=== PATIENT | female | born 1955 | race Caucasian/White ===

== ENCOUNTER 2016-12-24 07:05 | Emergency (ER) | payer MEDICARE ==
[2016-12-24 07:26] VITALS: BP 123/72
--- NOTE | 2016-12-24 07:58 | UC ---
Tena Jenkins Michael, scribed for Karla Schuler MD on 12/24/16 at 0728 . Headache HPI - HPI Summary HPI Summary: 61 y/o female comes to [facility] presenting with right temporal HOROWITZ that started 2 weeks ago and worsened last night. The pt describes the HOROWITZ as pressure and throbbing. She states that the HOROWITZ radiates to the frontal lobe, and her face, and the pain woke her up every two hours last night. The pt also c/o chills, nasal drainage, and diaphoresis. She denies fever. Pt feels it is a sinus infections. The PMHx is significant for sepsis in Aug 2016. Pt is on immunosuppressants for myasthenia gravis. The pt did not receive a influenza shot this year. - History Of Current Complaint Stated Complaint: HEADACHE Time Seen by Provider: 12/24/16 07:12 Hx Obtained From: Patient, Medical Records Onset/Duration: Gradual Onset, Lasting Weeks, Still Present, Worse Since - one day ago Onset Of Symptoms: Gradual, Still Present Initially Headache Was: Moderate Currently Pain Is: Moderate Pain Intensity: 6 Pain Scale Used: 0-10 Numeric Timing: Constant Character: Throbbing, Pressure Location of Headache: Frontal, Temporal - right, Other: - maxillary Aggravating Factor: Nothing Allevating Factors: Nothing Associated Signs And Symptoms: Positive: Other (Noted In Comments) - chills. diaphoresis. nasal drainage.. Negative: Fever, Visual Changes Related History: Similar Episode/DX As: - sinusitis - Risk Factors SAH Risk Factors: Negative Meningitis Risk Factors: Immune Deficiency - on immunosuppressants SDH Risk Factors: Negative Temporal Arteritis Risk Factors: Female, - Allergies/Home Medications Allergies/Adverse Reactions: Allergies Allergy/AdvReac Type Severity Reaction Status Date / Time Penicillins AdvReac Intermediate GI Upset Verified 02/19/15 19:41 PMH/Surg Hx/FS Hx/Imm Hx Previously Healthy: No - sepsis, myasthenia gravis Endocrine History Of: Denies: Diabetes, Thyroid Disease Cardiovascular History Of: Denies: Cardiac Disorders, Hypertension Respiratory History Of: Reports: Asthma Denies: COPD GI/ History Of: Denies: Ulcer Psychological History Of: Reports: Anxiety - Surgical History Surgical History: Yes Surgery Procedure, Year, and Place: thymectomy 2005; cataract L eye - Family History Known Family History: Positive: Cardiac Disease, Hypertension, Other - Hemochromatosis. liver disease. Negative: Diabetes - Social History Occupation: Disabled Lives: With Family Alcohol Use: None Substance Use Type: None Smoking Status (MU): Never Smoked Tobacco - Immunization History Most Recent Influenza Vaccination: 2012 Most Recent Tetanus Shot: 2014 Most Recent Pneumonia Vaccination: never Review of Systems Constitutional: Negative - fever, Chills, Other - diaphoresis ENT: Nasal Discharge Neurological: Headache All Other Systems Reviewed And Are Negative: Yes Physical Exam Triage Information Reviewed: Yes Vital Signs: Initial Vital Signs Temp 97.3 F 12/24/16 07:15 Pulse 63 12/24/16 07:15 Resp 16 12/24/16 07:15 BP 123/72 12/24/16 07:15 Pulse Ox 100 12/24/16 07:15 No SIRS criteria Vital Signs Reviewed: Yes - Additional Comments Appearance: Well-appearing, mild pain distress, Well-nourished Eyes: Conjunctiva clear ENT: Sinus tenderness frontal and maxillary. NML TMs. Pharynx normal. No TMJ tenderness. Temporal pain is higher than the temporal artery. Temporal artery pulse intact, nontender. right nostril with abrasion on lateral nare. Neck: Supple Respiratory: Lungs clear, Normal breath sounds, no respiratory distress Cardio: RRR, No murmur, pulses normal, brisk capillary refill Musculoskeletal: Strength Intact, ROM intact Neuro: Alert, muscle tone normal Psychological: Normal Skin: Normal Headache Course/Dx - Course Course Of Treatment: The patient has taken Augmentin in the past and has not had any side effects while taking it. She has discussed treatment of Augmentin with Dr. Krause. Pt feels Augmentin is the most effective for her sinus infections and wants to take it. Discussed diff dx including temporal arteritis. Will draw labs and start prednisone and advised pt definite follow up. Pt understands that temporal arteritis can be life threatening, and that she can go blind and will get definite follow up. - Differential Dx/Diagnosis Differential Diagnosis/HQI/PQRI: Sinus Headache, Temporal Arteritis, Tension Headache, Other - TMJ Provider Diagnoses: cephalgia-possible temporal arteritis. sinusitis Discharge - Discharge Plan Condition: Stable Disposition: HOME Prescriptions: Amoxicillin/Clavulanate TAB* [Augmentin TAB 875*] 875 mg PO BID #20 tab predniSONE TAB* [Deltasone TAB*] 40 mg PO DAILY #10 tab Patient Education Materials: Sinusitis (ED), Temporal Arteritis (ED) Referrals: Ankita Collado MD [Primary Care Provider] - Additional Instructions: Dr. Schuler has prescribed prednisone and drawn bloodwork to help with the possible diagnosis of temporal arteritis, and Dr. Schuler wants to make sure that you see your primary care doctor this week in 2-[address] Schuler suggests that you stop the nasal spray until the sore in your nostril heals. She prescribed Augmentin for your sinus infection despite your "allergy" to penicillin which you describe more as an adverse reaction affecting your myasthenia gravis, and that your neurologist, Dr. Krause has stated that you may take Augmentin. You may take over the counter sinus remedies in addition to the Augmentin, for your sinus headache. Go to the emergency room if you have any new or worsening symptoms. The documentation as recorded by the Tena skinner Michael accurately reflects the service I personally performed and the decisions made by , Karla Schuler MD.
[2016-12-24 12:38] LABS: Hematocrit 41 % (35-47); Hemoglobin 13.3 g/dl (12.0-16.0); Mean Corpuscular HGB Conc 33 g/dl (31-36); Mean Corpuscular Hemoglobin 30 pg (27-31); Mean Corpuscular Volume 93 fL (80-97); Mean Platelet Volume 8 um3 (7.4-10.4); Red Blood Count 4.37 10^6/ul (4.0-5.4); Red Cell Distribution Width 13 % (10.5-15)
[2016-12-24 13:56] LABS: Erythrocyte Sed Rate 9 mm/Hr (0-30)
== END 2016-12-24 07:48 | disposition home or self-care (01) ==
LOC: UCEAST 07:05
DX: R51 Headache (principal); J32.9 Chronic sinusitis, unspecified; Z88.0 Allergy status to penicillin; Z98.42 Cataract extraction status, left eye
CPT/HCPCS: 36415; 85025; 85652; 86140; 99212; G0463

== ENCOUNTER 2017-06-13 14:20 | Emergency (ER) | payer MEDICARE ==
[2017-06-13 15:21] VITALS: BP 163/87
--- NOTE | 2017-06-13 15:32 | UC ---
Respiratory Complaint HPI - HPI Summary HPI Summary: 62 YEAR OLD FEMALE PRESENTS WITH COMPLAINS OF COUGH, SINUS CONGESTION AND HEADACHE. - History of Current Complaint Chief Complaint: UCRespiratory Stated Complaint: COUGH,HEADACHE,DIARRHEA Time Seen by Provider: 06/13/17 15:25 - Allergies/Home Medications Allergies/Adverse Reactions: Allergies Allergy/AdvReac Type Severity Reaction Status Date / Time Penicillins AdvReac Intermediate GI Upset Verified 06/13/17 15:21 PMH/Surg Hx/FS Hx/Imm Hx Previously Healthy: Yes - Surgical History Surgical History: Yes Surgery Procedure, Year, and Place: thymectomy 2006; cataract L eye - Family History Known Family History: Positive: Cardiac Disease, Hypertension, Other - Hemochromatosis. liver disease. Negative: Diabetes - Social History Alcohol Use: Rare Substance Use Type: None Smoking Status (MU): Never Smoked Tobacco - Immunization History Most Recent Influenza Vaccination: 2012 Most Recent Tetanus Shot: 2014 Most Recent Pneumonia Vaccination: never Review of Systems Constitutional: Negative Skin: Negative Eyes: Negative ENT: Sore Throat, Ear Ache, Sinus Congestion Respiratory: Cough Cardiovascular: Negative Gastrointestinal: Negative Genitourinary: Negative Motor: Negative Neurovascular: Negative Musculoskeletal: Negative Neurological: Negative Psychological: Negative All Other Systems Reviewed And Are Negative: Yes Physical Exam Triage Information Reviewed: Yes Vital Signs: Initial Vital Signs Temp 36.8 C 06/13/17 15:13 Pulse 96 06/13/17 15:13 Resp 20 06/13/17 15:13 BP 163/87 06/13/17 15:13 Pulse Ox 96 06/13/17 15:13 Eye Exam: Normal ENT: Positive: Pharyngeal erythema Dental Exam: Normal Neck exam: Normal Neck: Positive: 1 Respiratory Exam: Normal Respiratory: Positive: Wheezing Cardiovascular Exam: Normal Abdominal Exam: Normal Musculoskeletal Exam: Normal Neurological Exam: Normal Psychological Exam: Normal Skin Exam: Normal Diagnostic Evaluation - Laboratory O2 Sat by Pulse Oximetry: 96 Respiratory Course/Dx - Differential Dx/Diagnosis Provider Diagnoses: COUGH. CONGESTION. HEADACHE Discharge - Discharge Plan Condition: Stable Disposition: HOME Prescriptions: Albuterol HFA INHALER* [Ventolin HFA Inhaler*] 1 puff INH Q6H PRN #1 mdi PRN Reason: Wheezing Amoxicillin/Clavulanate TAB* [Augmentin TAB 875*] 875 mg PO BID #20 tab guaiFENesin/CODIEN 100MG-10MG* [Robitussin AC 100Mg-10Mg*] 5 ml PO Q6H PRN #120 udc MDD 20 PRN Reason: Cough predniSONE TAB* [Deltasone TAB*] 40 mg PO DAILY #10 tab Patient Education Materials: Acute Bronchitis (ED) Referrals: Ankita Collado MD [Primary Care Provider] - As Soon As Possible
== END 2017-06-13 15:35 | disposition home or self-care (01) ==
LOC: UCEAST 14:20
DX: R05 Cough (principal); J34.89 Other specified disorders of nose and nasal sinuses; R51 Headache
CPT/HCPCS: 99212; G0463

== ENCOUNTER 2018-04-23 13:16 | Emergency (ER) | payer MEDICARE ==
--- NOTE | 2018-04-23 14:06 | RAD ---
INDICATION: Weakness COMPARISON: CT brain April 23, 2006 TECHNIQUE: Noncontrast axial source images were acquired from the skull base to the vertex. FINDINGS: Ventricles/sulci: The ventricles and cisterns are normal in size and configuration for age. Brain parenchyma: There is no focal parenchymal finding, evidence of intracranial mass, or intracranial mass effect. Intracranial hemorrhage:None. Extra-axial spaces: There are no abnormal extra axial fluid collections or evidence of extra-axial mass. Calvarium: There is no calvarial fracture or other calvarial abnormality. Scalp: There is no evidence of scalp or extracalvarial soft tissue abnormality. Paranasal sinuses/mastoid: The paranasal sinuses and mastoid air cells are clear. Other: None. IMPRESSION: No acute intracranial findings
[2018-04-23 14:13] LABS: ABS Basophils 0.1 10^3/ul (0-0.2); ABS Eosinophils 0.2 10^3/ul (0-0.6); ABS Lymphocytes 1.3 10^3/ul (1.0-4.8); ABS Monocytes 0.5 10^3/ul (0-0.8); ABS Neutrophils 3.9 10^3/ul (1.5-7.7); ABS Nucleated RBC 0 10^3/ul; Eosinophil % 3.2 % (0-6); Hematocrit 37 % (35-47); Hemoglobin 12.4 g/dl (12.0-16.0); Mean Corpuscular HGB Conc 34 g/dl (31-36); Mean Corpuscular Hemoglobin 30 pg (27-31); Mean Corpuscular Volume 89 fL (80-97); Mean Platelet Volume 6.7 um3 (7.4-10.4); Nucleated Red Blood Cells % 0; Platelet Count 383 10^3/ul (150-450); Red Blood Count 4.12 10^6/ul (4.00-5.40); Red Cell Distribution Width 14 % (10.5-15); White Blood Count 5.9 10^3/ul (3.5-10.8)
[2018-04-23 14:21] LABS: INR 0.88 (0.77-1.02)
[2018-04-23 14:36] LABS: EGFR Non-African American 75.1 (>60)
[2018-04-23 15:16] LABS: Urine Appearance Clear; Urine Blood 1+ (Negative); Urine Color Yellow; Urine Ketones Negative (Negative); Urine Protein Negative (Negative); Urine Specific Gravity 1.005 (1.010-1.030); Urine Urobilinogen Negative (Negative)
[2018-04-23 18:03] VITALS: BP 152/95
--- NOTE | 2018-04-23 22:04 | CONS ---
NEUROLOGY CONSULTATION REPORT: DATE OF CONSULT: 04/23/18 CONSULTING PHYSICIAN: Dr. Kyler Paulson. REASON FOR CONSULT: Neurology was consulted by Dr. Paulson to evaluate the patient for left arm weakness. CHIEF COMPLAINT: Left arm weakness. HISTORY OF PRESENT ILLNESS: Ms. Rossi Hitchcock is a 63-year-old right-handed female, who has myasthenia gravis seropositive, follows up with Dr. Mode Krause. She is currently CellCept 400 mg in the morning and 800 mg at night and Mestinon a quarter tablet 3 times a day. She feels that the myasthenia gravis is not well controlled. Unfortunately, the patient recently lost her brother who she cared for since November 2017. He due to hemochromatosis 2 days ago. She is busy with the events that are taking place after his including the . She was his healthcare proxy. Since his unfortunately, she has not been sleeping very well. She fell asleep last night at a chair inside her house. She fell asleep at 2 a.m. She woke up at 3 a.m. and felt that her left arm was slightly heavy. She thought she slept on it wrong. She got up and went to bed and tried to place the cover on top of her using the left arm and left hand. She is having trouble doing so. She still went to bed and woke up at around 9-10 o'clock. She texted her at 10 a.m. She typically does voice text messages, so she did not need to use the left hand. She has never had any similar weakness in the past. She denied any neck pain. She denied any radiating pain. She denied any face or lower extremity weakness. The patient presented in the ED. She had a CT head without contrast that I personally reviewed and it was obtained on 04/23/18. There was no acute intracranial finding. Laboratory findings revealed WBC 5.1, hemoglobin of 12.5, hematocrit of 37 and platelets of 383. She had a sodium level of 125 and chloride of 91 suggestive of underlying dehydration. Urinalysis was unremarkable. Lactate acid was 1.0. PAST MEDICAL HISTORY: Myasthenia gravis, diverticulosis, thymectomy in 2006, she had cataracts in the left eye. FAMILY HISTORY: Positive for cardiac disease, hypertension, hemochromatosis, and liver disease. No history of stroke or seizures. SOCIAL HISTORY: She uses alcohol occasionally. She never smoked tobacco. REVIEW OF SYSTEMS: A 14-point review of systems was obtained and otherwise negative except for what was mentioned in the HPI. PHYSICAL EXAM: Vitals: Temperature of 97 degrees Fahrenheit, pulse is 72, respiratory rate of 18, oxygen saturation of 100% on room air, the patient's blood pressure is 145/84. She denied any respiratory symptoms. General: Well - nourished, well-developed female, in no acute distress. Head: Atraumatic, normocephalic. Eyes: Conjunctivae/corneas are clear. Neck is supple and symmetrical. Lungs are clear to auscultation bilaterally. Cardiovascular: Regular rate and rhythm with normal S1, S2. Extremities: Normal range of motion with no cyanosis except for restricted range of motion of the left arm. Skin: No skin lesions or lacerations. Psych: She appears to be depressed with low mood and flat affect. She was easy to establish a rapport, but very tangential and circumferential in regards to ideas. Neurological Examination: Mental status: Awake, alert and oriented to person, place, time, and general circumstances. Speech and language including expression, naming, repetition, and comprehension were all assessed and found to be normal. Cranial Nerves: Normal confrontation bilaterally. Pupils are midrange and reactive to light. Normal consensual response. Extraocular muscles are intact. She does have a mild left ptosis that is fatigable on my examination. No conjugate or asymmetrical nystagmus. Sensation is intact on forehead, cheeks, and jaw region bilaterally. No facial droop. Facial symmetric bilaterally. She is able to hear throughout the history process. Symmetrical palatal elevation. Normal strength against resistance for shoulder shrug on the right, but not the left. Reduced activation due to effort. Tongue is symmetric and midline with no atrophy or fasciculation. Motor (right/left): No abnormal movements. No pronator drift though was not assessed clearly on the left as the patient has trouble abducting the left shoulder. Normal bulk and tone throughout. There was some resistance of the left upper extremity that slowly improved with distractible maneuvers. No fasciculation. Shoulder abduction significantly reduced on the left due to effort and low activation. Otherwise, elbow flexion and extension, wrist flexion and extension, finger flexion and extension and abduction were 5/5 throughout. Hip flexion, abduction, knee flexion and extension, ankle dorsiflexion, plantarflexion is 5/5 throughout. Reflexes: Right/left brachioradialis 2/2, biceps 2/2, triceps 2/2, patella 2/2, ankle 2/2 , flexor plantar response bilaterally. There was negative Gould sign. There is positive cross adductors on the right lower extremity. Sensation is intact to light touch throughout. Coordination is normal [id number]. She was able to actually do [id number] on the left. Gait and station: Narrow based, normal stance and gait. She was able to walk around the emergency department without any complications. Labs, imaging, other diagnostic testings were discussed in the HPI. IMPRESSION: Ms. Rossi Hitchcock is a pleasant 63-year-old right-handed female with a history of myasthenia gravis, on CellCept and Mestinon who presented with a 1-day history of left upper extremity fatigue. On examination, there was some give way activation and no findings of asymmetric reflexes or sensory abnormality. She has no facial or left lower extremity involvement. Overall, I do not suspect that the patient had a stroke. We cannot entirely exclude C5- 6 radiculopathy, although the patient denied any radiating neck pain. There is a functional component to her examination. In addition, she is at risk of having an acute stress reaction given the recent in the family. However, given the positive cross adductors on the right, I am concerned she may also have underlying cervical spondylosis with myelopathy. I recommended an MRI of the C-spine which can be done now or as outpatient. The patient opted to get further evaluation as an outpatient since she has not slept well over the last few days and just wants to get some rest. I do not suspect she has myasthenia gravis exacerbation given the asymmetric finding and new complaints of diplopia, ptosis, dysphagia or dyspnea. She does have chronic generalized fatigue. I reviewed the [facility] records. RECOMMENDATIONS: I recommend starting the patient on prednisone 10 mg for the next 7 days. This may help improve her fatigue. I advised her to monitor for any worsening of her respiratory status. She was offered admission for observation to see how her symptoms resolve or progress, but she prefers to rest at home. The patient has an appointment with Dr. Krause within the next 1 to 2 months. If symptoms persists, I encouraged her to contact us if she does not have any resolution of her left upper extremity fatigue. TIME SPENT: I spent a total of 60 minutes and greater than 50% was spent directly reviewing the medical chart, obtaining history, examining the patient, and discussing the treatment plan. She verbalized understanding and I answered all her questions to her satisfaction. She understands to come back to the ED if she has any recurrence of her symptoms. [id number]/[facility] #: [id number] SRINI
--- NOTE | 2018-04-24 14:31 | ED ---
Federico Jenkins Tiffany, scribed for Kyler Paulson MD on 04/23/18 at 1403 . Upper Extremity Pain - HPI Summary HPI Summary: 63 year old F presenting to [facility] complains of left arm weakness since 02:00 today. Symptoms aggravated by nothing. Symptoms alleviated by nothing. Patient reports left arm numbness, left arm shakiness, inability to move left arm, fatigue, recent stress, insomnia. Patient denies neck pain. Patient states she fell asleep in recliner chair last night, woke up at 02:00 and couldn't move arm , went back to sleep, woke up this morning and still couldn't move arm. Hx myasthenia gravis. - History of Current Complaint Chief Complaint: EDExtremityUpper Stated Complaint: LT ARM WEAKNESS Time Seen by Provider: 04/23/18 13:30 Hx Obtained From: Patient Onset/Duration: Started Hours Ago - 02:00 today, Still Present Aggravating Factor(s): Nothing Alleviating Factor(s): Nothing Associated Signs & Symptoms: Positive: Other - left arm numbness, left arm shakiness, inability to move left arm, fatigue, recent stress, insomnia. Negative: Neck Pain - Allergies/Home Medications Allergies/Adverse Reactions: Allergies Allergy/AdvReac Type Severity Reaction Status Date / Time Penicillins Allergy GI Upset Verified 04/23/18 13:25 Home Medications: Home Medications Gabapentin CAP(*) [Neurontin 300 CAP(*)] 300 mg PO TID 04/23/18 [History Confirmed 04/23/18] Ibuprofen TAB* [Motrin TAB* 400 MG] 800 mg PO TID PRN 04/23/18 [History Confirmed 04/23/18] Mycophenolate Mofetil TAB(*) [Cellcept TAB(*)] 1,000 mg PO QPM 04/23/18 [ History Confirmed 04/23/18] Mycophenolate Mofetil TAB(*) [Cellcept TAB(*)] 500 mg PO QAM 04/23/18 [History Confirmed 04/23/18] Omeprazole CAP* [Prilosec CAP* 20 MG] 40 mg PO DAILY 04/23/18 [History Confirmed 04/23/18] PARoxetine HCL TAB* [Paxil TAB*] 40 mg PO DAILY 04/23/18 [History Confirmed 09/30] Pyridostigmine [place] [Mestinon] 0.25 - 1 mg PO TID PRN 04/23/18 [History Confirmed 04/23/18] Triamcinolone NASAL SPRAY* [Nasacort AQ Nasal [place]*] 2 puff NASAL DAILY [History Confirmed 04/23/18] clonazePAM TAB(*) [KlonoPIN TAB(*)] 0.5 - 1 mg PO TID PRN 04/23/18 [History Confirmed 04/23/18] PMH/Surg Hx/FS Hx/Imm Hx Previously Healthy: No Endocrine/Hematology History: Denies: Hx Diabetes, Hx Thyroid Disease Cardiovascular History: Denies: Hx Hypertension Comment Only: Other Cardiovascular Problems/Disorders - SURGERY TO REMOVE THALMUS IN 2005 Respiratory History: Reports: Hx Asthma Denies: Hx Chronic Obstructive Pulmonary Disease (COPD) GI History: Denies: Hx Ulcer History: Reports: Hx Kidney Infection Denies: Hx Acute Renal Failure, Hx Chronic Renal Failure Musculoskeletal History: Reports: Other Musculoskeletal History - hx myasthenia gravis Sensory History: Reports: Hx Contacts or Glasses Opthamlomology History: Reports: Hx Contacts or Glasses Psychiatric History: Reports: Hx Anxiety - Cancer History Hx Chemotherapy: No Hx Radiation Therapy: No - Surgical History Surgery Procedure, Year, and Place: thymectomy 2005; cataract L eye Infectious Disease History: No Infectious Disease History: Reports: Hx Shingles Denies: Hx Clostridium Difficile, Hx Hepatitis, Hx Human Immunodeficiency Virus (HIV), Hx of Known/Suspected MRSA, Hx Tuberculosis, Hx Known/Suspected VRE , Hx Known/Suspected VRSA, History Other Infectious Disease, Traveled Outside the [place] in Last 30 Days - Family History Known Family History: Positive: Cardiac Disease, Hypertension, Other - Hemochromatosis. liver disease. Negative: Diabetes - Social History Alcohol Use: Occasionally Hx Substance Use: No Substance Use Type: Reports: None Hx Tobacco Use: No Smoking Status (MU): Never Smoked Tobacco Review of Systems Positive: Fatigue Positive: Other - left arm weakness, left arm numbness, left arm shakiness, inability to move left arm; NEGATIVE: neck pain Positive: Other - recent stress, insomnia All Other Systems Reviewed And Are Negative: Yes Physical Exam - Summary Physical Exam Summary: VITAL SIGNS: Reviewed. GENERAL: Patient is a well-developed and nourished female who is lying comfortable in the stretcher. Patient is not in any acute respiratory distress. HEAD AND FACE: No signs of trauma. No ecchymosis, hematomas or skull depressions. No sinus tenderness. EYES: PERRLA, EOMI x 2, No injected conjunctiva, no nystagmus. EARS: Hearing grossly intact. Ear canals and tympanic membranes are within normal limits. MOUTH: Oropharynx within normal limits. NECK: Supple, trachea is midline, no adenopathy, no JVD, no carotid bruit, no c- spine tenderness, neck with full ROM. CHEST: Symmetric, no tenderness at palpation LUNGS: Clear to auscultation bilaterally. No wheezing or crackles. CVS: Regular rate and rhythm, S1 and S2 present, no murmurs or gallops appreciated. ABDOMEN: Soft, non-tender. No signs of distention. No rebound no guarding, and no masses palpated. Bowel sounds are normal. EXTREMITIES: The patient has left arm weakness. NEURO: Alert and oriented x 3. No acute neurological deficits. Speech is normal and follows commands. SKIN: Dry and warm Triage Information Reviewed: Yes Vital Signs On Initial Exam: Initial Vitals Temp Pulse Resp BP Pulse Ox 97 F 80 18 145/84 100 04/23/18 13:21 04/23/18 13:21 04/23/18 13:21 04/23/18 13:21 04/23/18 13:21 Vital Signs Reviewed: Yes Diagnostics - Vital Signs Vital Signs Temp Pulse Resp BP Pulse Ox 04/23/18 13:21 97 F 80 18 145/84 100 - Laboratory Result Diagrams: 04/23/18 14:02 04/23/18 14:02 Lab Statement: Any lab studies that have been ordered have been reviewed, and results considered in the medical decision making process. - CT Brain CT Interpretation Completed By: Radiologist - No acute intracranial findings. ED physician has reviewed this report. - EKG 13:59 Cardiac Rate: NL - 69 BPM EKG Rhythm: Sinus Rhythm EKG Interpretation: No ST elevations. Course/Dx - Course Assessment/Plan: 63 year old F presenting to [facility] complains of left arm weakness since 02:00 today. Test results without significant abnormities except Na level 125 and AST 61. Urinalysis negative for UTI. CT brain showed No acute intracranial findings. Discussed patient's case with Dr. Brown, neurology, who came and evaluated the patient. After evaluation, he thinks that patient is having an anxiety episode and that she does not have neurological focal deficits. He recommended to discharge patient home with prescription for Medrol dosepak and follow-up in his office. I recommended to patient that she be admitted for low sodium level, although patient declines. Patient signed out AMA. - Diagnoses Provider Diagnoses: Anxiety - Physician Notifications Discussed Care of Patient With: Nithin Brown Time Discussed With Above Provider: 15:16 Instructed by Provider To: Other - Dr. Brown, neurology, agrees to see patient. Discharge - Sign-Out/Discharge Documenting (check all that apply): Discharge/Admit/Transfer - Discharge Plan Condition: Stable Disposition: AGAINST MEDICAL ADVICE Prescriptions: methylPREDNISolone [Medrol Dosepak 4 MG*] 0 mg PO .SEE SLOO INSTRUCTION #1 solo Patient Education Materials: Anxiety (ED) Referrals: Mode Krause MD [Medical Doctor] - Richard Ingram MD [Primary Care Provider] - 3 Days Additional Instructions: Follow up with your primary care provider in 3 days. Follow up with Dr. Krause , neurology, during your appointment next month. RETURN TO THE EMERGENCY DEPARTMENT FOR NEW OR WORSENING SYMPTOMS. The documentation as recorded by the Federico skinner Tiffany accurately reflects the service I personally performed and the decisions made by me, Kyler Paulson MD.
--- NOTE | 2018-04-26 15:36 | PN ---
Progress Note - Progress Note Date of Service: 04/23/18 Note: Pt. seen in the ER 04/23/18 with complaints of arm weakness. Urine culture sent at that time. Pt. has a history of myasthenia gravis and is on CellCept. Urine culture today is growing 25-50,000 Escherichia coli. I called and spoke patient today around 1530 discussed results. Given her history, will treat for suspected UTI. Patient states that the only antibiotic that typically works for her UTIs is Augmentin. She has penicillins listed as an allergy but the reaction is GI upset. Augmentin sent to patient's pharmacy. She is going to follow up with her family doctor.
== END 2018-04-23 18:01 | disposition left against medical advice (07) ==
LOC: ED 13:16
DX: F41.9 Anxiety disorder, unspecified (principal); E87.1 Hypo-osmolality and hyponatremia; G70.00 Myasthenia gravis without (acute) exacerbation; Z53.21 Procedure and treatment not carried out due to patient leaving prior to being seen by health care provider; Z88.0 Allergy status to penicillin
CPT/HCPCS: 36415; 70450; 80053; 81003; 81015; 83605; 84484; 85025; 85610; 87077; 87086; 87186; 93005; 99283

== ENCOUNTER 2018-05-14 11:05 | Emergency (ER) | payer MEDICARE ==
[2018-05-14 11:23] VITALS: BP 152/88
--- NOTE | 2018-05-14 12:17 | UC ---
Complaint Female HPI - HPI Summary HPI Summary: 63 y/o female presents to the urgent care c/o urinary frequency and burning on urination w/ Rt side lower back pain since 05/10/2018. Pt reports urinary symptoms started first and then low back pain started yesterday. Pain w / urination is 6/10. She took Ibuprofen PO 600mg to alleviate symptoms yesterday. Pt reports she has Hx of UTI and Mysthenia Gravis. Pt states she recently went to the ER on 04/23/2018 for RT arm weakness. Two days later she got a called back stating her urine culture was + for UTI she was Rx ABx, but she thinks her UTI has not completely resolved. Her bother just and she is going too a lot of stress and jitter. She thinks her symptoms are returning. Pt denies fever, pelvic pain, vaginal pain, abdominal pain, flank pain, N/V/D. - History Of Current Complaint Chief Complaint: UCGeneralIllness Stated Complaint: LOW BACK PAIN Time Seen by Provider: 05/14/18 12:16 Hx Obtained From: Patient ?: No - menopausal Onset/Duration: Gradual Onset, Lasting Days - 5 days, Still Present, Worse Since - yesterday Timing: Intermittent Severity Initially: Mild Severity Currently: Moderate Pain Intensity: 6 Pain Scale Used: 0-10 Numeric Character: Burning Aggravating Factor(s): Urination Alleviating Factor(s): Meds - ibuprofen PO 600mg Associated Signs And Symptoms: Positive: Back Pain - RT side lower back pain. Negative: Fever, Vaginal Bleeding/Discharge, Vaginal Discharge - Risk Factors Ectopic Risk Factor: Negative Ovarian Torsion Risk Factor: Negative - Allergies/Home Medications Allergies/Adverse Reactions: Allergies Allergy/AdvReac Type Severity Reaction Status Date / Time ciprofloxacin [From Cipro] Allergy See Comment Verified 05/14/18 11:35 Penicillins AdvReac GI Upset Verified 05/14/18 11:35 PMH/Surg Hx/FS Hx/Imm Hx Previously Healthy: Yes Other Endocrine History: Myasthenia gravis Psychological History: Anxiety, Depression - Surgical History Surgical History: Yes Surgery Procedure, Year, and Place: thymectomy 2005; cataract L eye - Family History Known Family History: Positive: Cardiac Disease, Hypertension Negative: Diabetes Family History: Hemochromatosis. liver disease. - Social History Occupation: Unemployed Lives: With Family Alcohol Use: Occasionally Substance Use Type: None Smoking Status (MU): Never Smoked Tobacco - Immunization History Most Recent Influenza Vaccination: 2013 Most Recent Tetanus Shot: 2014 Most Recent Pneumonia Vaccination: never Review of Systems Constitutional: Negative Skin: Negative Eyes: Negative ENT: Negative Respiratory: Negative Cardiovascular: Negative Gastrointestinal: Negative Genitourinary: Dysuria, Frequency, Urgency Motor: Negative Neurovascular: Negative Musculoskeletal: Other: - RT side lower back pain Neurological: Negative Psychological: Negative Is Patient Immunocompromised?: No All Other Systems Reviewed And Are Negative: Yes Physical Exam - Summary Physical Exam Summary: VITAL SIGNS: Reviewed. GENERAL: Patient is a well developed and nourished female who is sitting comfortable in the examining table. Patient is not in any acute respiratory distress. HEAD AND FACE: No signs of trauma. No ecchymosis, hematomas or skull depressions. No sinus tenderness. EYES: PERRLA, EOMI x 2, No injected conjunctiva, clear watery eyes, no nystagmus. No photophobia. EARS: Hearing grossly intact. Ear canals and tympanic membranes are within normal limits. MOUTH: pharynx with no erythema, no exudates,no palatal petechiae. no B/L tonsillar enlargement Uvula in midline. NECK: Supple, trachea is midline, no lymphadenopathy, no JVD, no carotid bruit, no c-spine tenderness, neck with full ROM. CHEST: Symmetric, no tenderness at palpation LUNGS: Clear to auscultation bilaterally. No wheezing or crackles. CVS: Regular rate and rhythm, S1 and S2 present, no murmurs or gallops appreciated. ABDOMEN: Soft, non-tender. No signs of distention. No rebound no guarding, and no masses palpated. Bowel sounds are normal. BACK:no scoliosis or lesions, non tender to palpation, No B/L CVA tenderness EXTREMITIES: FROM in all major joints, no edema, no cyanosis or clubbing. NEURO: Alert and oriented x 3. No acute neurological deficits. Speech is normal and follows commands. SKIN: Dry and warm Triage Information Reviewed: Yes Vital Signs: Initial Vital Signs Temp 98 F 05/14/18 11:17 Pulse 97 05/14/18 11:17 Resp 20 05/14/18 11:17 BP 152/88 05/14/18 11:17 Pulse Ox 100 05/14/18 11:17 Complaint Female Dx - Course Course Of Treatment: 63 y/o female presents to the urgent care c/o urinary frequency and burning on urination w/ Rt side lower back pain since . Pt reports urinary symptoms started first and then low back pain started yesterday. Pain w/ urination is 6/10. She took Ibuprofen PO 600mg to alleviate symptoms yesterday. Pt reports she has Hx of UTI and Mysthenia Gravis. Pt states she recently went to the ER on 04/23/2018 for RT arm weakness. Two days later she got a called back stating her urine culture was + for UTI she was Rx ABx, but she thinks her UTI has not completely resolved. Her bother just and she is going too a lot of stress and jitter. She thinks her symptoms are returning. Pt denies fever, pelvic pain, vaginal pain, abdominal pain, flank pain, N/V/D.Hx obtained. PE:Pt hemodynamically stable w/o any apparent distress, PE: WNL, no B/L CVA tenderness on examination. UA ordered. UA results: Blood 1+. 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 Pt w/ Hx of recurrent UTI. Urine sill be sent for culture to r/o UTI, Pt will be notified for further treatment. Pt will be treated prophylactically w/ Macrobid 100mg PO x 5 days. Pyridium 100mg PO TID x 2 days to alleviate dysuria. Pt advised to increase fluid intake. Pt is getting grieving nutrition counselor from hospice care at this moment. Pt advised to f/u w/ PCP Dr Ingram in 2 days for further management.Strongly advied if symptoms woren or she develops fever, and flank pain despite ABx T to go immediately to the ER for further management. Pt's BP is elevated today advised to decrease salt in diet, monitor BP and f/u with PCP for further management. Pt understood and agreed. Left the clinic ambulating hemodynamically stable, A&OX3. - Differential Dx/Diagnosis Differential Diagnosis/HQI/PQRI: Cervicitis, Pelvic Inflammatory Disease, Renal Colic, Ureteral Stone, Urinary Tract Infection Provider Diagnoses: 1- Dysuria. 2-Elevated BP w/o Hx of HTN Discharge - Sign-Out/Discharge Documenting (check all that apply): Discharge/Admit/Transfer - D/C home - Discharge Plan Condition: Stable Disposition: HOME Prescriptions: Nitrofurantoin Monohyd/M-Cryst [Macrobid 100 mg Capsule] 100 mg PO BID #10 cap Phenazopyridine TAB* [Pyridium 100 mg TAB*] 100 mg PO TID #6 tab Patient Education Materials: Urinary Tract Infection in Women (ED), Dysuria (ED ), Low-Sodium Diet (ED) Referrals: Richard Ingram MD [Primary Care Provider] - 2 Days Additional Instructions: 1- Please take Macrobid 100mg PO x 5days. Pyridium 100 mg PO TID x 2 days to alleviate urinary symptoms. Increase increase fluid intake. drink cranberry juice. 2-Urine sent for culture if any abnormality, you will be notified for further treatment. 3-Your BP is elevated today. please decrease salt in your diet, monitor BP and if it continues to be elevated please f/u with your PCP for further management 4-If symptoms do not improve please f/u w/ your PCP. DR Ingram in 2 days for further management 5-If you develop fever of flank pain despite taking antibiotic please go immediately to the ER for further management - Billing Disposition and Condition Condition: STABLE Disposition: Home
--- NOTE | 2018-05-15 17:46 | UC ---
- Progress Note Progress Note: urine culture - final- no growth no change linus 05/15/2018 Discharge - Sign-Out/Discharge Documenting (check all that apply): Discharge/Admit/Transfer - Discharge Plan Condition: Stable Disposition: HOME Prescriptions: Nitrofurantoin Monohyd/M-Cryst [Macrobid 100 mg Capsule] 100 mg PO BID #10 cap Phenazopyridine TAB* [Pyridium 100 mg TAB*] 100 mg PO TID #6 tab Patient Education Materials: Urinary Tract Infection in Women (ED), Dysuria (ED ), Low-Sodium Diet (ED) Referrals: Richard Ingram MD [Primary Care Provider] - 2 Days Additional Instructions: 1- Please take Macrobid 100mg PO x 5days. Pyridium 100 mg PO TID x 2 days to alleviate urinary symptoms. Increase increase fluid intake. drink cranberry juice. 2-Urine sent for culture if any abnormality, you will be notified for further treatment. 3-Your BP is elevated today. please decrease salt in your diet, monitor BP and if it continues to be elevated please f/u with your PCP for further management 4-If symptoms do not improve please f/u w/ your PCP. DR Ingram in 2 days for further management 5-If you develop fever of flank pain despite taking antibiotic please go immediately to the ER for further management - Billing Disposition and Condition Condition: STABLE Disposition: Home
== END 2018-05-14 13:10 | disposition home or self-care (01) ==
LOC: UCEAST 11:05
DX: R30.0 Dysuria (principal); M54.5 Low back pain; R35.0 Frequency of micturition; Z88.0 Allergy status to penicillin; Z88.1 Allergy status to other antibiotic agents; Z87.440 Personal history of urinary (tract) infections
CPT/HCPCS: 81003; 87086; 99211; G0463

== ENCOUNTER 2019-03-28 13:24 | Emergency (ER) | payer MEDICARE ==
[2019-03-28 14:25] VITALS: BP 137/74
[2019-03-28] MEDS ORDERED: Albuterol/Ipratropium NEB.SOL* Albuterol 2.5 MG/Ipratropium 0.5 MG 3 ML INH ONE (14:38)
--- NOTE | 2019-03-28 14:58 | UC ---
Respiratory Complaint HPI - HPI Summary HPI Summary: Pt Presents with c/o cough, wheezing, sob, nasal congestion, malaise and hx of reactive airway disease. Pt states that her chest feels "tight" and is having difficulty taking a deep breath due to congestion and subsequent cough. X 2 weeks. - History of Current Complaint Chief Complaint: UCRespiratory Stated Complaint: COUGH/UPPER RESPITORY Time Seen by Provider: 03/28/19 14:08 Hx Obtained From: Patient ?: No Onset/Duration: Gradual Onset, Lasting Weeks - 2 Severity Initially: Mild Severity Currently: Moderate Pain Intensity: 3 Character: Cough: Productive Aggravating Factors: Exertion, Deep Breaths, Recumbent Position Associated Signs And Symptoms: Positive: Chills, Wheezing, URI, Nasal Congestion - Risk Factors Pulmonary Embolism Risk Factors: Negative Cardiac Risk Factors: Negative Pseudomonas Risk Factors: Chronic Lung Disease Tuberculosis Risk Factors: Negative - Allergies/Home Medications Allergies/Adverse Reactions: Allergies Allergy/AdvReac Type Severity Reaction Status Date / Time ciprofloxacin [From Cipro] Allergy See Comment Verified 03/28/19 14:09 Penicillins AdvReac GI Upset Verified 03/28/19 14:09 Home Medications: Home Medications Albuterol HFA INHALER* [Ventolin HFA Inhaler*] 2 puff INH Q4H PRN 03/28/19 [ History Confirmed 03/28/19] PMH/Surg Hx/FS Hx/Imm Hx Previously Healthy: Yes Respiratory History: Other - reactive airway - Surgical History Surgical History: Yes Surgery Procedure, Year, and Place: thymectomy 2005; cataract L eye - Family History Known Family History: Positive: Cardiac Disease, Hypertension, Other - Hemochromatosis. liver disease. Negative: Diabetes Family History: Hemochromatosis. liver disease. - Social History Occupation: Retired Lives: With Family Alcohol Use: Occasionally Substance Use Type: None Smoking Status (MU): Never Smoked Tobacco Have You Smoked in the Last Year: No - Immunization History Most Recent Influenza Vaccination: 2012 Most Recent Tetanus Shot: 2014 Most Recent Pneumonia Vaccination: never Vaccination Up to Date: No Review of Systems All Other Systems Reviewed And Are Negative: Yes Constitutional: Positive: Fever - subjective, Chills, Fatigue Skin: Positive: Negative Eyes: Positive: Negative ENT: Positive: Nasal Discharge, Sinus Congestion Respiratory: Positive: Shortness Of Breath, Cough Cardiovascular: Positive: Negative Gastrointestinal: Positive: Negative Genitourinary: Positive: Negative Motor: Positive: Negative Neurovascular: Positive: Negative Musculoskeletal: Positive: Myalgia Neurological: Positive: Negative Psychological: Positive: Negative Is Patient Immunocompromised?: No Physical Exam Triage Information Reviewed: Yes Appearance: Ill-Appearing Vital Signs: Initial Vital Signs Temp 98.1 F 03/28/19 14:13 Pulse 90 03/28/19 14:13 Resp 18 03/28/19 14:13 BP 137/74 03/28/19 14:13 Pulse Ox 96 03/28/19 14:13 Vital Signs Reviewed: Yes Eye Exam: Normal ENT: Positive: Nasal congestion, TM bulging Dental Exam: Normal Neck exam: Normal Respiratory: Positive: Decreased breath sounds, Wheezing - throughout Cardiovascular Exam: Normal Musculoskeletal Exam: Normal Neurological Exam: Normal Psychological Exam: Normal Skin Exam: Normal Respiratory Course/Dx - Differential Dx/Diagnosis Differential Diagnosis/HQI/PQRI: Bronchitis, Exacerbation Of COPD Provider Diagnosis: COPD exacerbation, Bronchitis Discharge - Sign-Out/Discharge Documenting (check all that apply): Patient Departure All imaging exams completed and their final reports reviewed: No Studies - Discharge Plan Condition: Stable Disposition: HOME Prescriptions: Benzonatate CAP* [Tessalon 100 MG CAP*] 200 mg PO Q8H PRN #30 cap PRN Reason: Cough DOXYcycline CAP(*) [DOXYcycline 100MG CAP(*)] 100 mg PO Q12H #20 cap predniSONE TAB* [Deltasone 10 MG TAB*] 30 mg PO DAILY #12 tab Patient Education Materials: Acute Bronchitis (ED), Wheezing (ED) Referrals: Richard Ingram MD [Primary Care Provider] - As Soon As Possible Additional Instructions: Please follow up with your PCP as soon as possible. - Billing Disposition and Condition Condition: STABLE Disposition: Home
== END 2019-03-28 15:17 | disposition home or self-care (01) ==
LOC: UCCORT 13:24
DX: J44.1 Chronic obstructive pulmonary disease with (acute) exacerbation (principal); J40 Bronchitis, not specified as acute or chronic; Z88.0 Allergy status to penicillin; Z88.1 Allergy status to other antibiotic agents
CPT/HCPCS: 99212; A9270-GY; G0463